=== PATIENT | male | born 1975 | race Two or more races ===

== ENCOUNTER 2019-11-06 13:30 | Outpatient (CLI) | payer MEDICAID ==
[~2019-11-06] VITALS: Ht 172.7 cm; Wt 90.3 kg
[2019-11-06 15:56] VITALS: BP 125/75
[2019-11-06] MEDS ORDERED: TRAZODONE HCL100 MG ORAL (15:56)
[2019-11-06] MEDS ORDERED: PANTOPRAZOLE SO40 MG ORAL (15:56)
[2019-11-06] MEDS ORDERED: GABAPENTIN800 MG ORAL (15:56)
[2019-11-06] MEDS ORDERED: ZOFRAN4 M3 ORAL (15:56)
[2019-11-06] MEDS ORDERED: CATAPRES0.1 MG ORAL (15:56)
[2019-11-06] MEDS ORDERED: MINIPRESS1 MG PO (15:56)
[2019-11-06] MEDS ORDERED: VISTARIL50 MG ORAL (15:56)
--- NOTE | 2019-11-06 20:15 | Consultation ---
DATE OF CONSULTATION: 11/06/2019 CHIEF COMPLAINT: Coffee-grounds emesis. HISTORY OF PRESENT ILLNESS: This is a pleasant 44-year-old male, alcoholic, currently in rehabilitation, presented with complaint of vomiting, went to the ER and he was told that he needs an endoscopy. PAST MEDICAL HISTORY: 1. Asthma. 2. GERD. 3. Depression. 4. Anxiety. PAST SURGICAL HISTORY: None. MEDICATIONS: Please see medication reconciliation list. FAMILY HISTORY: No family history of gastrointestinal malignancies. SOCIAL HISTORY: The patient smokes and drinks. Currently in rehabilitation for the last [address] drugs. ALLERGIES: No known drug allergies. REVIEW OF SYSTEMS: Positive for gastroesophageal reflux disease and vomiting blood. PHYSICAL EXAMINATION: VITAL SIGNS: Temperature 98, blood pressure 124/75, respirations 20, and pulse 108. HEENT: Normocephalic and atraumatic. Sclerae anicteric. NECK: Supple. No evidence of obvious lymphadenopathy. LUNGS: Decreased breath sounds bilaterally based on the supine exam. CARDIOVASCULAR: Regular rate and rhythm. Plus S1 and S2. ABDOMEN: Soft and nontender. No rebound. No guarding. No peritoneal sign. EXTREMITIES: No cyanosis, no clubbing, no edema ASSESSMENT/PLAN: This is a 44-year-old alcoholic male with coffee-grounds emesis. The patient needs an endoscopy, currently on PPI. The patient was recommended to continue on pantoprazole 1 tablet p.o. daily. We are going to send an authorization for endoscopy and as soon as the approval, we are going to schedule him for an endoscopy. Meanwhile, the patient was advised to stop drinking and using drugs. Andrey Cha M.D. DR: SHERRI JOB#: [id number] CC:
== END 2019-11-06 15:30 | disposition home or self-care (01) ==
LOC: PAN 13:30
DX: R11.10 Vomiting, unspecified (principal); K21.9 Gastro-esophageal reflux disease without esophagitis; F32.9 Major depressive disorder, single episode, unspecified; F41.9 Anxiety disorder, unspecified; J45.909 Unspecified asthma, uncomplicated
CPT/HCPCS: G0463